=== PATIENT | male | born 1945 | race Two or more races ===

== ENCOUNTER → 2025-01-12 | Outpatient (CLI) | payer OTHER, SELFPAY ==
[2025-01-12 09:13] LABS: Prostate Specific Antigen 0.37 ng/mL (0-4.00)
== END | disposition home or self-care (01) ==
PROVIDERS: PCP Internal Medicine Nephrology; Referring Provider Internal Medicine Nephrology; Visit Provider Internal Medicine Nephrology
DX: N40.1 Benign prostatic hyperplasia with lower urinary tract symptoms (principal)
CPT/HCPCS: 36415; 84153

== ENCOUNTER → 2025-01-19 | Outpatient (BNVA) | payer OTHER, SELFPAY | END | disposition home or self-care (01) | PROVIDERS: PCP Family Medicine; Referring Provider Family Medicine; Visit Provider Urology | DX: N40.1 Benign prostatic hyperplasia with lower urinary tract symptoms (principal); N13.8 Other obstructive and reflux uropathy; K21.9 Gastro-esophageal reflux disease without esophagitis | CPT/HCPCS: 81003; 99213; G0463 ==

== ENCOUNTER → 2025-09-13 | Outpatient (CLI) | payer OTHER, SELFPAY ==
--- NOTE | 2025-09-13 08:30 | XR_ITS ---
Examination: CT abdomen and pelvis without contrast. Coronal 3-D reconstructions. Sagittal 2-D reconstructions. Date and time of exam: September 13, 2025, 0828 hours, comparison November 07, 2019 INDICATIONS: Pelvic pain 1 month as well as right lower abdominal pain CTDI: vol (mGy): 7.08 DLP: (mGycm): 390 Technique: Axial images of the abdomen have been obtained, 3 mm slice thickness Intravenous contrast material has not been administered. Low dose protocols were performed. One or more of the following dose reduction techniques were used; automated exposure control, adjustment of the mA and/or KV according to patient size, use of iterative reconstruction technique. Findings: 22 mm left hepatic cyst No gallstones Spleen is not enlarged No pancreatic or adrenal mass No renal or ureteral calculi, no hydronephrosis Aorta normal size Normal appendix No bowel obstruction Normal seminal vesicles Transverse prostate dimension 4.1 cm Mild thickening of the urinary bladder up to 5 mm Erosions at the symphysis, probably benign Severe osteopenia Hips intact Advanced disc narrowing L5-S1 Severe osteopenia IMPRESSION: 22 mm left hepatic cyst No renal or ureteral calculi, no hydronephrosis Normal appendix Mild prostatomegaly. Mild thickening of the urinary bladder wall, cystitis would be included in the differential Probably chronic erosions at the symphysis pubis but clinical correlation advised As clinically warranted, consider MRI pelvis follow-up pre and postcontrast with attention to the symphysis
== END | disposition home or self-care (01) ==
LOC: CCTX 08:26
PROVIDERS: PCP Family Medicine; Referring Provider Family Medicine; Visit Provider Family Medicine
DX: K76.89 Other specified diseases of liver (principal); N32.89 Other specified disorders of bladder; N40.0 Benign prostatic hyperplasia without lower urinary tract symptoms
CPT/HCPCS: 74176